=== PATIENT | male | born 1990 | race Asian ===

== ENCOUNTER 2021-11-11 19:32 | Emergency (ER) | payer OTHER ==
[2021-11-11] MEDS ORDERED: LIDOCAINE 1%-EPI 1:100000 20 ML MDV SUBQ STA (19:52)
--- NOTE | 2021-11-11 20:11 | ED Physician Documentation ---
History of Present Illness - Stated complaint Stated Complaint: L FINGER LAC - Chief complaint Chief Complaint: Laceration - History obtained from History obtained from: Patient - History of Present Illness Timing: Today, How many hours ago (1) Pain level max: 0 Pain level now: 0 - Additonal information Additional information: Patient is a 30-year-old male who presents to the emergency department with a laceration to the left hand, dorsum of the hand over the second MCP joint. This occurred about an hour prior to arrival while opening a box. Tetanus up-to-date. Neurovascularly intact. No numbness or tingling. Better with pressure, nothing makes it worse Review of Systems Constitutional: denies: Fever Neurologic: denies: Numbness PD PAST MEDICAL HISTORY - Past Medical History Past Medical History: No - Past Surgical History Past Surgical History: Yes - Present Medications Home Medications: Ambulatory Orders Medication Instructions Recorded Confirmed No Known Home Medications 11/11/21 11/11/21 - Allergies Allergies/Adverse Reactions: Allergies Allergy/AdvReac Type Severity Reaction Status Date / Time No Known Drug Allergies Allergy Verified 11/11/21 19:39 - Social History Does the pt smoke?: No Smoking Status: Never smoker Does the pt drink ETOH?: No Does the pt have substance abuse?: No - Immunizations Immunizations are current?: Yes PD ED PE NORMAL - Vitals Vital signs reviewed: Yes - General General: Alert and oriented X 3, No acute distress - Derm Derm: Warm and dry - Extremities Extremities: Other (Laceration to the dorsum of the neck all over the second MCP joint of the left hand. Neurovascular intact. No tendon injury. 2 cm in length) - Neuro Neuro: Alert and oriented X 3 Results - Vitals Vitals: Vital Signs - 24 hr 11/11/21 11/11/21 19:37 20:12 Temperature 36.5 C 36.5 C Heart Rate 87 81 Respiratory 16 16 Rate Blood Pressure 164/101 H 155/89 H O2 Saturation 98 98 Oxygen O2 Source Room air Procedures - Laceration (location) Left hand, second MCP joint, dorsum Length in cm: 2 Wound type: Linear, Into subcut fat, Clean Neurovascular status: Sensory intact, Motor intact, Vascular intact Tendon involvement: Tendon intact Anesthesia: Lidocaine 1% with epi Wound preparation: Irrigated copiously NS, Wound explored, To the base Skin layer closure: Nylon, Interrupted, Size #-0 - enter number (4) Other: Patient tolerated well, No complications, Neurovascular intact, Tetanus UTD PD MEDICAL DECISION MAKING - ED course Complexity details: considered differential, d/w patient ED course: Laceration repaired. Tolerated well. No tendon injury. Warnings of infection and instructions on wound care given at bedside. Also counseled on how to minimize scarring. Patient counseled regarding signs and symptoms for which I believe and urgent re-evaluation would be necessary. Patient with good understanding of and agreement to plan and is comfortable going home at this time This document was made in part using voice recognition software. While efforts are made to proofread this document, sound alike and grammatical errors may occur. Departure - Departure Disposition: 01 Home, Self Care Clinical Impression: Hand laceration Qualifiers: Encounter type: initial encounter Foreign body presence: unspecified Laterality: left Qualified Code(s): S61.412A - Laceration without foreign body of left hand, initial encounter Condition: Good Instructions: ED Laceration Hand Follow-Up: your,doctor in about 10 days [Other] Comments: Follow-up with your doctor in about 10 days for suture removal. Keep the wound clean. Return if you worsen, especially for redness, swelling or drainage from the wound. You can wash it with soap and wam water Discharge Date/Time: 11/11/21 20:17
[2021-11-11 20:13] VITALS: BP 155/89
== END 2021-11-11 20:17 | disposition home or self-care (01) ==
LOC: ED 19:32
DX: S61.412A Laceration without foreign body of left hand, initial encounter (principal); W45.8XXA Other foreign body or object entering through skin, initial encounter; Y93.89 Activity, other specified
CPT/HCPCS: 12001; 99281

== ENCOUNTER 2022-11-17 22:04 | Emergency (ER) | payer OTHER ==
--- NOTE | 2022-11-17 22:12 | ED Physician Documentation ---
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 Today after working out he felt weak and dizzy and felt like his heart rate was going fast. It is associated with body wide tingling that was not lateralizing and itchiness especially of the palms. He took a shower and then that made him feel worse. Feels better now though. For EMS his initial heart rate was 185. He did travel to [place] recently but denies chest pain, trouble breathing, calf pain, pedal edema. PD PAST MEDICAL HISTORY - Past Surgical History Past Surgical History: Yes - Present Medications Home Medications: Ambulatory Orders Medication Instructions Recorded Confirmed No Known Home Medications 11/11/21 11/11/21 - Allergies Allergies/Adverse Reactions: Allergies Allergy/AdvReac Type Severity Reaction Status Date / Time No Known Drug Allergies Allergy Verified 11/11/21 19:39 - Social History Does the pt smoke?: No Smoking Status: Never smoker Does the pt drink ETOH?: No Does the pt have substance abuse?: No - Immunizations Immunizations are current?: Yes PD ED PE NORMAL - Vitals Vital signs reviewed: Yes - General General: Alert and oriented X 3, No acute distress - Neck Neck: Supple, no meningeal sign, No bony TTP - Cardiac Cardiac: RRR, No murmur - Respiratory Respiratory: No respiratory distress, Clear bilaterally - Abdomen Abdomen: Normal bowel sounds, Soft, Non tender - Back Back: No CVA TTP, No spinal TTP - Derm Derm: Normal color, Warm and dry - Extremities Extremities: No edema, No calf tenderness / cord - Neuro Neuro: Alert and oriented X 3, Normal speech - Psych Psych: Normal mood, Normal affect Results - Vitals Vitals: Vital Signs - 24 hr 11/17/22 11/17/22 11/17/22 22:12 22:30 23:41 Temperature 37.2 C Heart Rate 101 H 99 Heart Rate [ 80 Sitting] Heart Rate [ 97 Standing] Heart Rate [ 72 Supine] Respiratory 16 16 Rate Blood Pressure 109/70 113/70 Blood Pressure 113/86 H [Sitting] Blood Pressure 123/81 H [Standing] Blood Pressure 110/74 [Supine] O2 Saturation 100 100 Oxygen O2 Source Room air - Labs Labs: Laboratory Tests 11/17/22 11/17/22 11/17/22 22:21 22:21 22:21 WBC 8.1 RBC 5.59 Hgb 15.6 Hct 47.6 MCV 85.2 MCH 27.9 MCHC 32.8 RDW 13.2 Plt Count 258 MPV 10.0 Neut # (Auto) 4.6 Lymph # (Auto) 2.9 Bremer # (Auto) 0.4 Eos # (Auto) 0.2 Baso # (Auto) 0.0 Absolute Nucleated RBC 0.00 Nucleated RBC % 0.0 Sodium 135 Potassium 3.4 L Chloride 104 Carbon Dioxide 22 Anion Gap 9.0 BUN 26 H Creatinine 1.6 H Estimated GFR (MDRD) 51 L Glucose 176 H Calcium 9.3 Magnesium 1.7 Total Bilirubin 0.9 AST 25 ALT 46 Alkaline Phosphatase 44 Total Creatine Kinase 114 Troponin I High Sens < 2.3 L Total Protein 7.0 Albumin 4.2 Globulin 2.8 Albumin/Globulin Ratio 1.5 PD Medical Decision Making - ED course ED course: 31-year-old gentleman with presyncope associated with tachycardia. Feels better now. Doubt PE given lack of chest pain, trouble breathing, or pedal edema or calf pain. Could be dehydration related to keto diet we will check orthostatics. His EKG is abnormal, could be benign early repolarization with convex elevation in anterior, but also in 1 and L. He has no chest pain, no trouble breathing. Will check a troponin, if negative probably needs to be referred for echo. He is orthostatic with his heart rate going from 72 up to 97 with orthostatic vital signs and shows prerenal azotemia on his blood work with a creatinine of 1.6 and a BUN of 26. There are no priors available for comparison. D/w pt, - confirmed no CP/SOA. Doubt EKg is acute, trop neg. Understands PMD f/u, prob echo. Departure - Departure Disposition: 01 Home, Self Care Clinical Impression: Pre-syncope, Dehydration, Abnormal EKG Condition: Stable Record reviewed to determine appropriate education?: Yes Instructions: ED Dehydration, ED Near Syncope Unkn Comments: You were seen today for resolved episode of lightheadedness. The cause of which is unclear. You were dehydrated with positive orthostatic vital signs and abnormal lab work with a BUN of 26 and a creatinine of 1.6. He also had elevated blood sugar at 176. I would recommend stopping the keto diet and going back to more of a normal diet pending follow-up with your primary care physician. My suspicion is the dehydration and current symptoms are related to the keto diet. He also had an abnormal EKG. He had diffuse ST elevation. Given that it was not associated with chest pain or trouble breathing my suspicion is that this is a chronic process but should also be mentioned to your primary care physician and I would suspect they will order an echocardiogram. Call your primary tomorrow for follow-up. Return for new or worsening symptoms. Discharge Date/Time: 11/17/22 23:44
[2022-11-17] MEDS: SODIUM CHLORIDE 0.9% 1,000 ML IV STA (22:16)
[2022-11-17 22:27] LABS: BASOPHILS % (AUTO) 0.5 %; EOSINOPHILS # (AUTO) 0.2 10^3/uL (0.0-0.7); EOSINOPHILS % (AUTO) 1.8 %; HCT - HEMATOCRIT 47.6 % (42.0-52.0); HGB - HEMOGLOBIN 15.6 g/dL (14.0-18.0); LYMPHOCYTES # (AUTO) 2.9 10^3/uL (1.5-3.5); LYMPHOCYTES % (AUTO) 35.6 %; MEAN CORPUSCULAR HEMOGLOBIN 27.9 pg (27.0-31.0); MEAN CORPUSCULAR HGB CONC 32.8 g/dL (32.0-36.0); MEAN CORPUSCULAR VOLUME 85.2 fL (80.0-94.0); MONOCYTES # (AUTO) 0.4 10^3/uL (0.0-1.0); MONOCYTES % (AUTO) 5.3 %; NEUTROPHILS # (AUTO) 4.6 10^3/uL (1.5-6.6); NEUTROPHILS % (AUTO) 56.6 %; PLT - PLATELET COUNT 258 10^3/uL (130-450); RED BLOOD COUNT 5.59 10^6/uL (4.70-6.10); RED CELL DISTRIBUTION WIDTH 13.2 % (12.0-15.0); WHITE BLOOD COUNT 8.1 x10^3/uL (4.8-10.8)
[2022-11-17 22:38] LABS: ALBUMIN 4.2 g/dL (3.2-5.5); ALBUMIN/GLOBULIN RATIO 1.5 (1.0-2.2); BILIRUBIN,TOTAL 0.9 mg/dL (0.2-1.0); CALCIUM 9.3 mg/dL (8.5-10.3); CREATININE 1.6 mg/dL (0.6-1.2); MAGNESIUM 1.7 mg/dL (1.7-2.8); POTASSIUM 3.4 mmol/L (3.5-5.0)
[2022-11-17 23:42] VITALS: BP 113/70
== END 2022-11-17 23:44 | disposition home or self-care (01) ==
LOC: EDUNIT# → ED 22:04
DX: R55 Syncope and collapse (principal); E86.0 Dehydration; R94.31 Abnormal electrocardiogram [ECG] [EKG]
CPT/HCPCS: 36415; 80053; 82550; 83735; 84484; 85025; 93005; 96360; 99283